=== PATIENT | female | born 1995 | race American Indian/Alaskan Native ===

== ENCOUNTER 2017-04-26 21:50 | Emergency (ER) | payer MEDICAID ==
[2017-04-26 23:08] VITALS: BP 108/72
== END 2017-04-27 06:01 | disposition left against medical advice (07) ==
LOC: ED 21:50
DX: R11.2 Nausea with vomiting, unspecified (principal); Z53.21 Procedure and treatment not carried out due to patient leaving prior to being seen by health care provider

== ENCOUNTER 2017-09-19 23:15 | Outpatient (CLI) | payer MEDICAID ==
[2017-09-19 23:25] VITALS: BP 120/72
[2017-09-20] MEDS ORDERED: VISTARIL PO ONE (00:15)
== END 2017-09-20 00:47 | disposition home or self-care (01) ==
LOC: TRG 23:15
PROVIDERS: ATTEND Obstetrics & Gynecology
DX: O62.9 Abnormality of forces of labor, unspecified (principal); O99.333 Smoking (tobacco) complicating pregnancy, third trimester; Z3A.35 35 weeks gestation of pregnancy; F17.203 Nicotine dependence unspecified, with withdrawal
CPT/HCPCS: 59025; Q0177

== ENCOUNTER 2017-09-29 23:49 | Inpatient (IN) | payer MEDICAID ==
[2017-09-30] MEDS ORDERED: LACTATED RINGERS 500 ML IV SCH (01:00)
[2017-09-30 02:11] LABS: Bilirubin,Urine NEG (Negative); Blood,Urine NEG (Negative); Color,Urine Yellow (Yellow); Mucus,Urine FEW /HPF; Protein,Urine <15 mg/dL mg/dL (Negative); Urobilinogen,Urine < 2.0 mg/dL (<2.0); WBC,Urine < 1.0 /HPF (0.0-6.0)
[2017-09-30] MEDS ORDERED: VISTARIL PO STA (02:16)
[2017-09-30] MEDS ORDERED: GUAIFENESIN DM SYRUP PO PRN (04:44)
[2017-09-30] MEDS ORDERED: AMBIEN PO PRN (04:44)
[2017-09-30] MEDS ORDERED: BENADRYL PO PRN ×2 (04:44→16:17)
[2017-09-30] MEDS ORDERED: ZOFRAN IV PRN (04:44)
[2017-09-30] MEDS ORDERED: TUCKS PAD TP PRN ×2 (04:44→16:17)
[2017-09-30] MEDS ORDERED: DEEP SEA NS PRN (04:44)
[2017-09-30] MEDS ORDERED: TYLENOL PO PRN ×2 (04:44→16:17)
[2017-09-30] MEDS ORDERED: ALUM-MAG HYDROX-SIMETH 200-200-20MG/5ML PO PRN (04:44)
[2017-09-30] MEDS ORDERED: SUBLIMAZE IV ONE ×2 (04:44→07:52)
[2017-09-30] MEDS ORDERED: MYLICON PO PRN (04:44)
[2017-09-30] MEDS ORDERED: SUBLIMAZE ONE ×2 (04:59→07:48)
--- NOTE | 2017-09-30 05:25 | History and Physical Report ---
History of Present Illness Date of examination: 09/30/17 Date of admission: 09/30/17 03:39 Chief complaint: contractions History of present illness: Patient presented complaining of contractions, initial exam reported as 2cm, she was observed x 1hour with no cervical change and catefory 1 FHT's, Order was given for Vistaril and discharge home. At discharge patient complained of vaginal bleeding, she was rechecked and found to be 4cm and bleeding/clots and possible abruption pattern, RN given orders to admit Past History : 3 Term Births: 2 Living Children: 2 Para: 2 # 1 Delivery date: 09/12/2012 Weeks Gestation: 37 Delivery type: Vaginal Anesthesia type: epidural Delivery location: [facility] Infant Sex: male weight: 6.19 Comments: pre-eclampsia/eclampsia/ MGSO4 # 2 Delivery date: 03/2015 Weeks Gestation: 41 Delivery type: Anesthesia type: none Delivery location: [facility] Infant Sex: Male weight: 6-2 Comments: del precipitously; pt had transfered care and was del by as a walk-in Past Medical History: Reviewed history from 04/27/2012 and no changes required: Negative Past Medical History Past Surgical History: Reviewed history from 04/27/2012 and no changes required: Negative Past Surgical History Past Medical History Abnormal PAP: negative SHARATH Exposure: negative Infertility: negative Uterine Anomaly: negative Uterine Surgery (not C/S): negative Other Gynecologic Problems: negative Social Hx: Patient is single [facility] no e/t/d Infection History Hx of STD: none HIV Risk Eval: low risk Hepatitis B Risk Eval: low risk Personal hx. of genital herpes: no Partner hx. of genital herpes: no Rash, Viral, or Febrile illness since last LMP? no Varicella/Chicken Pox Status: Immunized TB Risk: no Genetic History Congenital Heart Defect: Mom: no Dad: no Bri Disease: Mom: no Dad: no Thalassemia Mom: no Dad: no Neural Tube Defect Mom: no Dad: no Down's Syndrome Mom: no Dad: no Manuel-Sachs Mom: no Dad: no Sickle Cell Disease/Trait Mom: no Dad: no Hemophilia Mom: no Dad: no Muscular Dystrophy Mom: no Dad: no Cystic Fibrosis Mom: no Dad: no [place] Chorea Mom: no Dad: no Mental Retardation Mom: no Dad: no Fragile X Mom: no Dad: no Other Genetic/Chromosomal Disorder Mom: no Dad: no Child w/other defect Mom: no Dad: no Enviromental Exposures Xray Exposure: no Medication, drug, or alcohol use since LMP: no Chemical/Other Exposure: no Exposure to Cat Liter: no Hx of Parvovirus (Fifth Disease): no Occupational Exposure to Children: none Active Medications (reviewed today): Current Allergies (reviewed today): No known allergies Past History - Obstetrical History Expected Date of Delivery: 10/22/17 Actual Gestation: 36 Week(s) 6 Day(s) : 3 Medications and Allergies Allergies Allergy/AdvReac Type Severity Reaction Status Date / Time No Known Allergies Allergy Verified 03/24/15 22:56 Home Medications Medication Instructions Recorded Confirmed Last Taken Type Vit No.129/Iron/Folic 1 each PO DAILY 04/17/15 09/30/17 1 Day Ago History [ Tablet] ~09/29/17 Ferrous Sulfate [Feosol 325 MG tab] 325 mg PO BID #60 tablet 04/18/15 09/30/17 1 Day Ago Rx ~09/29/17 1 Vit-Fe Fumar-FA [ 1 tab PO QDAY #30 tablet 04/18/15 09/30/17 Unknown Rx Vitamin] Active Meds: Active Medications Acetaminophen (Tylenol) 650 mg PO Q4H PRN PRN Reason: Pain MILD(1-3)/Fever >100.5/KNOTT Al Hydrox/Mg Hydrox/Simethicone (Alum-Mag Hydrox-Simeth [phone]/5ml) 30 ml PO Q6H PRN PRN Reason: Indigestion Betamethasone Acet/Betameth SodPhos (Celestone Soluspan) 12 mg IM Q24HR CHLOÉ Stop: 10/01/17 10:01 Diphenhydramine HCl (Benadryl) 25 mg PO Q6H PRN PRN Reason: Itching Docusate Sodium (Colace) 100 mg PO Q12H PRN PRN Reason: Constipation Fentanyl (Sublimaze) 100 mcg IV ONCE ONE Stop: 09/30/17 04:45 Guaifenesin (Guaifenesin Dm Syrup) 10 ml PO Q6H PRN PRN Reason: Cough Lactated Ringer's (Lactated Ringers) 500 mls @ 999 mls/hr IV DIRECT CHLOÉ Last Infusion: 09/30/17 03:44 Dose: Infused Lactated Ringer's (Lactated Ringers) 1,000 mls @ 125 mls/hr IV DIRECT CHLOÉ Magnesium Hydroxide (Milk Of Magnesia) 30 ml PO QHS PRN PRN Reason: Laxative Effect Multivitamins/Iron/Calcium ( Vitamin) 1 each PO QDAY CHLOÉ Ondansetron HCl (Zofran) 4 mg IV Q6H PRN PRN Reason: Nausea And Vomiting Simethicone (Mylicon) 80 mg PO Q6H PRN PRN Reason: Gas pain Sodium Chloride (Deep Sea) 2 spray NS Q4H PRN PRN Reason: Congestion Witch Patricia/Glycerin (Tucks Pad) 1 each TP PRN PRN PRN Reason: Hemorrhoids Zolpidem Tartrate (Ambien) 10 mg PO ONCE PRN PRN Reason: Sleep Review of Systems All systems: negative Genitourinary: vaginal bleeding, contractions - Vital Signs Vital signs: Vital Signs Temp Pulse Resp BP 98.7 F 90 16 126/83 09/30/17 00:04 09/30/17 00:04 09/30/17 00:04 09/30/17 00:04 Temp Pulse Resp BP Pulse Ox 98.7 F 100 H 16 132/85 09/30/17 00:04 09/30/17 03:38 09/30/17 05:16 09/30/17 03:38 - Physical Exam Breasts: Positive: deferred Cardiovascular: Regular rate Lungs: Positive: Normal air movement Abdomen: Positive: normal appearance, soft Genitourinary (Female): Positive: normal external genitalia, normal perenium Vulva: both: normal Extremities: Positive: normal. Negative: tenderness, edema - Obstetrical FHR: category 1 Cervical Dilatation: 2.5 Cervical Effacement Percentage: 70 station: -4 per RN with bloody show, no active bleeding Uterine Contraction Pattern: Irregular Results Result Diagrams: 09/30/17 00:55 All other labs normal. Assessment and Plan Admit possibly early labor US to evaluate for abruption IVF hydration Celestone - Patient Problems (1) 36 weeks gestation of Current Visit: Yes Status: Acute (2) Vaginal bleeding during Current Visit: Yes Status: Acute (3) Uterine contractions Current Visit: Yes Status: Acute
[2017-09-30 05:29] LABS: Hematocrit TNR % (30.3-42.9); Hemoglobin TNR gm/dl (10.1-14.3); Lymphocytes % (Auto) TNR % (13.4-35.0); Mean Corpuscular HGB Conc TNR % (30-34); Mean Corpuscular Hemoglobin TNR pg (28-32); Mean Corpuscular Volume TNR fl (79-97); Mean Platelet Volume TNR fl (6-12); Platelet Count TNR K/mm3 (140-440); Red Blood Count TNR M/mm3 (3.65-5.03); Red Cell Distribution Width TNR % (13.2-15.2)
[2017-09-30] MEDS: LACTATED RINGERS 1,000 ML IV SCH ×2 (05:29→15:18)
[2017-09-30 05:30] LABS: Basophils # (Auto) TNR K/mm3 (0.0-0.1); Basophils % (Auto) TNR % (0.0-1.8); Eosinophils # (Auto) TNR K/mm3 (0.0-0.4); Eosinophils % (Auto) TNR % (0.0-4.3); Lymphocytes # (Auto) TNR K/mm3 (1.2-5.4); Monocytes # (Auto) TNR K/mm3 (0.0-0.8); Monocytes % (Auto) TNR % (0.0-7.3)
[2017-09-30] MEDS ORDERED: CELESTONE SOLUSPAN IM SCH (05:30)
--- NOTE | 2017-09-30 06:25 | Ultrasound Report ---
FINAL REPORT PROCEDURE: US OB LIMITED TECHNIQUE: Real-time limited sonographic examination was performed for evaluation of size, position, heartbeat, fluid volume for each fetus with image documentation (1 or more fetuses). CPT 09550 HISTORY: vaginal bleeding COMPARISON: No prior studies are available for comparison. FINDINGS: There is a single fetus in a vertex presentation. The placenta is along the left lateral aspect of the uterus. No previa identified. The cervical length is 3.1 centimeters. heart rate 136 beats per minute. Four-quadrant amniotic fluid volume measures 7.5 centimeters. IMPRESSION: Single fetus in a vertex presentation. There is a normal moderate amount of fluid.
[2017-09-30] MEDS ORDERED: COLACE PO PRN (08:00)
[2017-09-30] MEDS ORDERED: PRENATAL VITAMIN PO SCH (10:00)
[2017-09-30] MEDS ORDERED: PITOCin/NS 30 UNIT/500ML 30,000 MILLIUNITS/500 ML BAG IV ONE (11:24)
[2017-09-30 12:16] LABS: Hematocrit 32.9 % (30.3-42.9); Hemoglobin 10.8 gm/dl (10.1-14.3); Mean Corpuscular HGB Conc 33 % (30-34); Mean Corpuscular Hemoglobin 28 pg (28-32); Mean Corpuscular Volume 86 fl (79-97); Platelet Count 100 K/mm3 (140-440); Red Blood Count 3.83 M/mm3 (3.65-5.03); Red Cell Distribution Width 14.9 % (13.2-15.2)
[2017-09-30] MEDS ORDERED: NARCAN 2 MG/2 ML IV PRN (12:53)
[2017-09-30] MEDS ORDERED: ePHEDrine SULFATE IV PRN (12:53)
--- NOTE | 2017-09-30 12:53 | Anesthesia Consultation ---
Anesthesia Consult and Med Hx Date of service: 09/30/17 - Airway Anesthetic Teeth Evaluation: Good ROM Head & Neck: Adequate Mental/Hyoid Distance: Adequate Mallampati Class: Class II Intubation Access Assessment: Probably Good - Pulmonary Exam CTA: Yes - Cardiac Exam Cardiac Exam: RRR - Pre-Operative Health Status ASA Pre-Surgery Classification: ASA2 Proposed Anesthetic Plan: Epidural - Pulmonary Hx Asthma: No COPD: No Hx Pneumonia: No - Cardiovascular System Hx Hypertension: No - Central Nervous System Hx Seizures: No Hx Psychiatric Problems: No - Endocrine Hx Renal Disease: No Hx End Stage Renal Disease: No Hx Hypothyroidism: No Hx Hyperthyroidism: No - Hematic Hx Anemia: No Hx Sickle Cell Disease: No - Other Systems Hx Alcohol Use: No
[2017-09-30] MEDS ORDERED: fentaNYL-BUPIV 2 MCG/ML-0.125% 200 MCG/100 ML BAG EPIDURAL SCH (14:00)
--- NOTE | 2017-09-30 14:04 | Progress Note ---
Assessment and Plan - Patient Problems (1) labor Current Visit: Yes Status: Acute Qualifiers: labor trimester: third trimester Fetus number: single or unspecified fetus Plan to address problem: Artificial rupture of membranes revealing clear fluid cervix with little change will increase Pitocin and watch tracing. Intrauterine pressure catheter and scalp electrode placed (2) 36 weeks gestation of Current Visit: Yes Status: Acute (3) Vaginal bleeding during Current Visit: Yes Status: Acute Subjective - Subjective Date of service: 09/30/17 Interval history: Patient is comfortable after epidural Patient reports: movement normal, contractions Objective - Vital Signs Vital Signs: Vital Signs - 12hr 09/30/17 09/30/17 09/30/17 03:38 05:16 05:47 Temperature Pulse Rate 100 H 90 Respiratory 16 18 Rate Blood Pressure 132/85 Blood Pressure 132/85 [Left] O2 Sat by Pulse 99 Oximetry 09/30/17 09/30/17 09/30/17 05:53 05:58 07:29 Temperature Pulse Rate 92 H 81 100 H Respiratory Rate Blood Pressure 114/71 Blood Pressure [Left] O2 Sat by Pulse 100 100 Oximetry 09/30/17 09/30/17 09/30/17 08:04 08:10 08:29 Temperature 98.5 F Pulse Rate 98 H 96 H 89 Respiratory Rate Blood Pressure 103/64 114/82 Blood Pressure 103/64 [Left] O2 Sat by Pulse 97 Oximetry 09/30/17 09/30/17 09/30/17 09:28 10:29 12:46 Temperature Pulse Rate 96 H 101 H 107 H Respiratory Rate Blood Pressure 120/76 115/67 Blood Pressure [Left] O2 Sat by Pulse 100 Oximetry 09/30/17 09/30/17 09/30/17 12:51 12:52 12:55 Temperature Pulse Rate 107 H 108 H 96 H Respiratory Rate Blood Pressure 118/75 112/71 Blood Pressure [Left] O2 Sat by Pulse 100 Oximetry 09/30/17 09/30/17 09/30/17 12:57 13:08 13:12 Temperature Pulse Rate 111 H 108 H 103 H Respiratory Rate Blood Pressure 113/73 114/70 113/74 Blood Pressure [Left] O2 Sat by Pulse Oximetry 09/30/17 09/30/17 09/30/17 13:18 13:22 13:27 Temperature Pulse Rate 108 H 109 H 121 H Respiratory Rate Blood Pressure 125/80 124/78 139/79 Blood Pressure [Left] O2 Sat by Pulse Oximetry 09/30/17 09/30/17 09/30/17 13:33 13:38 13:43 Temperature Pulse Rate 109 H 111 H 109 H Respiratory Rate Blood Pressure 129/80 129/85 130/80 Blood Pressure [Left] O2 Sat by Pulse Oximetry 09/30/17 09/30/17 09/30/17 13:48 13:53 13:54 Temperature Pulse Rate 114 H 107 H 110 H Respiratory Rate Blood Pressure 131/85 122/82 Blood Pressure [Left] O2 Sat by Pulse 99 100 Oximetry 09/30/17 09/30/17 09/30/17 13:57 13:58 14:02 Temperature Pulse Rate 89 102 H 111 H Respiratory Rate Blood Pressure 118/78 126/86 Blood Pressure [Left] O2 Sat by Pulse 100 Oximetry 09/30/17 14:03 Temperature Pulse Rate 112 H Respiratory Rate Blood Pressure Blood Pressure [Left] O2 Sat by Pulse 100 Oximetry - Exam FHR: category 1 Cervical Dilatation: 4.5 Cervical Effacement Percentage: 70 station: -1 Uterine Contraction Pattern: Irregular - Labs Labs: Abnormal Labs 09/30/17 12:04 WBC 13.0 H Plt Count 100 L Laboratory Results - last 24 hr 09/30/17 09/30/17 09/30/17 00:55 00:55 12:04 WBC TNR 13.0 H RBC TNR 3.83 Hgb TNR 10.8 Hct TNR 32.9 MCV TNR 86 MCH TNR 28 MCHC TNR 33 RDW TNR 14.9 Plt Count TNR 100 L Lymph % (Auto) TNR Saunders % (Auto) TNR Eos % (Auto) TNR Baso % (Auto) TNR Lymph # TNR Saunders # TNR Eos # TNR Baso # TNR Add Manual Diff TNR Seg Neutrophils % TNR Office Bookkeeper Seg Neutrophils # TNR Urine Color Urine Turbidity Urine pH Ur Specific [place] Urine Protein Urine Glucose (UA) Urine Ketones Urine Blood Urine Nitrite Urine Bilirubin Urine Urobilinogen Ur Leukocyte Esterase Urine WBC (Auto) Urine RBC (Auto) U Epithel Cells (Auto) Urine Mucus Blood Type AB POSITIVE Antibody Screen Negative 09/30/17 Unknown WBC RBC Hgb Hct MCV MCH MCHC RDW Plt Count Lymph % (Auto) Saunders % (Auto) Eos % (Auto) Baso % (Auto) Lymph # Saunders # Eos # Baso # Add Manual Diff Seg Neutrophils % Seg Neutrophils # Urine Color Yellow Urine Turbidity Clear Urine pH 6.0 Ur Specific [place] 1.010 Urine Protein <15 mg/dl Urine Glucose (UA) Neg Urine Ketones Neg Urine Blood Neg Urine Nitrite Neg Urine Bilirubin Neg Urine Urobilinogen < 2.0 Ur Leukocyte Esterase Neg Urine WBC (Auto) < 1.0 Urine RBC (Auto) 3.0 U Epithel Cells (Auto) 1.0 Urine Mucus Few Blood Type Antibody Screen
[2017-09-30 14:18] LABS: Anisocytosis 1+; Band Neutrophils # (Manual) 0.1 K/mm3; Basophils % (Manual) 0 % (0.0-1.8); Eosinophils % (Manual) 0 % (0.0-4.3); Platelet Estimate Consistent w Auto; Total Cells Counted 100
[2017-09-30] MEDS ORDERED: PITOCin/NS 20 UNIT/1000ML DRIP 20,000 MILLIUNITS/1,000 ML BAG IV ONE (15:30)
--- NOTE | 2017-09-30 16:16 | Procedure Note ---
OB Delivery Note - Delivery Date of Delivery: 09/30/17 Surgeon: GRETCHEN MORALES Estimated blood loss: other (400cc) - Vaginal Delivery position: OA Intrapartum events: labor-<37 weeks, prolonged latent phase Delivery augmentation: rupture of membranes, pitocin Delivery monitor: external FHT, external uterine, internal FHT, internal uterine Route of delivery: Delivery placenta: spontaneous Delivery cord: nuchal cord Episiotomy: none Delivery laceration: 2nd degree (midline) Delivery repair: vicryl Anesthesia: epidural Delivery comments: Patient, labor was complicated by deep variables after reaching 9 cm. The patient successfully pushed and delivered a male infant with a nuchal cord present. NICU team was present at delivery - A at 1 minute: 8 at 5 minutes: 9 Gender: Male
[2017-09-30] MEDS ORDERED: MILK OF MAGNESIA PO PRN ×2 (16:17→22:00)
[2017-09-30] MEDS ORDERED: LANSINOH TP PRN (16:17)
[2017-09-30] MEDS ORDERED: PHENERGAN PO PRN (16:17)
[2017-09-30] MEDS ORDERED: NORCO 5/325 PO PRN (16:17)
[2017-09-30] MEDS ORDERED: DULCOLAX PR PRN (16:17)
[2017-09-30] MEDS ORDERED: SODIUM CHLORIDE FLUSH SYRINGE 10 ML IV SCH (17:00)
[2017-09-30] MEDS: MOTRIN PO SCH (20:29)
[2017-10-01] MEDS: MOTRIN PO SCH ×4 (03:46→18:00)
[2017-10-01 07:15] LABS: Hematocrit 27.1 % (30.3-42.9); Hemoglobin 9.1 gm/dl (10.1-14.3)
--- NOTE | 2017-10-01 09:15 | Discharge Summary ---
Providers - Providers Date of Admission: 09/30/17 03:39 Date of discharge: 10/01/17 Attending physician: JETHRO MEEHAN 09/30/17 16:19 Consult to Livestock Counter [CONS] Routine Reason For Exam: assistance with , SNS Primary care physician: TOBI NAVARRO Hospitalization Reason for admission: active labor Delivery: Episiotomy: none Laceration: 1st degree Other procedures: none complications: none Discharge diagnosis: IUP at term delivered baby: male Hospital course: Patient was admitted underwent a normal spontaneous vaginal delivery. Her course was benign. She was afebrile throughout her stay. Her day 1 hematocrit was 27%. Patient is breast and bottlefeeding and desired a Mirena for control. Patient desires discharge this afternoon. Condition at discharge: Good Disposition: DC-01 TO HOME OR SELFCARE - Discharge Diagnoses (1) labor Status: Acute Qualifiers: labor trimester: third trimester Fetus number: single or unspecified fetus (2) 36 weeks gestation of Status: Resolved (3) Vaginal bleeding during Status: Resolved Plan - Discharge Medications Prescriptions: Ferrous Sulfate [Feosol 325 MG tab] 325 mg PO BID #60 tablet Ibuprofen [Motrin 800 MG tab] 800 mg PO Q6H PRN #30 tablet PRN Reason: Pain - Provider Discharge Summary Activity: routine, no sex for 6 weeks Diet: routine Instructions: routine Additional instructions: [] Smoking cessation referral if applicable(refer to patient education folder for contact #) [] Refer to [facility] Call your doctor immediately for: * Fever > 100.5 * Heavy vaginal bleeding ( >1 pad per hour) * Severe persistent headache * Shortness of breath * Reddened, hot, painful area to leg or breast * Drainage or odor from incision. *Patient follow up in office in 4 weeks. Patient called office to schedule circumcision for her son. - Follow up plan Follow up: TOBI NAVARRO MD [Primary Care Provider] - 7 Days
[2017-10-01] MEDS ORDERED: PRENATAL VITAMIN PO SCH (10:00)
[2017-10-02] MEDS: MOTRIN PO SCH ×2 (05:38)
[2017-10-02 08:34] VITALS: BP 116/86
== END 2017-10-02 10:00 | disposition home or self-care (01) | DRG 774 ==
LOC: TRG 23:49 → LD 09-30 03:39 → TRG 09-30 03:39 → OB 09-30 18:43
PROVIDERS: ADMIT Obstetrics & Gynecology; ATTEND Obstetrics & Gynecology
PROC: 10E0XZZ Delivery of Products of Conception, External Approach (ICD-10-PCS; principal; 2017-09-30)
PROC: 0KQM0ZZ Repair Perineum Muscle, Open Approach (ICD-10-PCS; 2017-09-30)
PROC: 10907ZC Drainage of Amniotic Fluid, Therapeutic from Products of Conception, Via Natural or Artificial Opening (ICD-10-PCS; 2017-09-30)
PROC: 3E0R3BZ Introduction of Anesthetic Agent into Spinal Canal, Percutaneous Approach (ICD-10-PCS; 2017-09-30)
PROC: 00HU33Z Insertion of Infusion Device into Spinal Canal, Percutaneous Approach (ICD-10-PCS; 2017-09-30)
DX: O60.14X0 Preterm labor third trimester with preterm delivery third trimester, not applicable or unspecified (principal); O67.8 Other intrapartum hemorrhage; Z3A.36 36 weeks gestation of pregnancy; Z37.0 Single live birth; O69.81X0 Labor and delivery complicated by cord around neck, without compression, not applicable or unspecified; O70.1 Second degree perineal laceration during delivery
CPT/HCPCS: 36415; 59025; 76815; 81001; 85007; 85014; 85018; 85025; 86592; 86850; 86900; 86901; 96360; J0702; J2590; J3010; J7120; Q0177

== ENCOUNTER 2021-07-02 09:07 | Emergency (ER) | payer MEDICAID ==
[2021-07-02 11:38] LABS: Bacteria,Urine 1+ /HPF (Negative); HCG Qualitative,Urine Negative (Negative); Mucus,Urine 2+ /HPF
[2021-07-02 11:53] LABS: Bilirubin,Urine NEG (Negative); Blood,Urine NEG (Negative); Color,Urine Yellow (Yellow); Protein,Urine <15 mg/dL mg/dL (Negative); Urobilinogen,Urine < 2.0 mg/dL (<2.0)
--- NOTE | 2021-07-02 13:43 | Emergency Department Report ---
HPI - General Chief Complaint: Abdominal Pain Time Seen by Provider: 07/02/21 13:27 - HPI HPI: Over the last 2 months the patient has noticed some issues with bruising on her skin. It started with minor trauma on her right lateral thigh when she hit herself and she bruised but after that she has had a couple of other bruises in the anterior thigh and also in her right upper extremity and she does not account for it with any even minor trauma. She denies any nausea vomiting fever chills shortness of breath or chest pain. She is concerned because of blood clots run in her family and she would like to get checked for a coagulation problem. Nothing makes this better or worse and she has taken no medications. ED Past Medical Hx - Past Medical History Hx Hypertension: No Hx Congestive Heart Failure: No Hx Diabetes: No Hx Deep Vein Thrombosis: No Hx Renal Disease: No Hx Sickle Cell Disease: No Hx Seizures: No Hx Asthma: No Hx COPD: No Hx HIV: No - Social History Smoking Status: Former Smoker - Medications Home Medications: Home Medications Medication Instructions Recorded Confirmed Last Taken Type Vit No.129/Iron/Folic 1 each PO DAILY 04/17/15 09/30/17 1 Day Ago History [ Tablet] ~09/29/17 Ferrous Sulfate [Feosol 325 MG tab] 325 mg PO BID #60 tablet 04/18/15 09/30/17 1 Day Ago Rx ~09/29/17 1 Vit-Fe Fumar-FA [ 1 tab PO QDAY #30 tablet 04/18/15 09/30/17 Unknown Rx Vitamin] Ferrous Sulfate [Feosol 325 MG tab] 325 mg PO BID #60 tablet 09/30/17 Unknown Rx Ibuprofen [Motrin 800 MG tab] 800 mg PO Q6H PRN #30 tablet 09/30/17 Unknown Rx Ibuprofen [Motrin 800 MG tab] 800 mg PO TID PRN #30 tablet 10/02/17 Unknown Rx Lidocain2.5%/Prilocai2.5% [Emla] 5 gm TP PRN #1 tube 10/02/17 Unknown Rx ED Review of Systems ROS: Stated complaint: ABD PAIN Other details as noted in HPI Comment: All other systems reviewed and negative Physical Exam - Physical Exam Vital Signs: Vital Signs 07/02/21 10:20 Temperature 98.3 F Pulse Rate 88 Respiratory 18 Rate Blood Pressure 155/90 [Right] O2 Sat by Pulse 100 Oximetry Physical Exam: Physical Exam Constitutional: General: No acute distress. Appearance: No diaphoresis. HENT: Head: Normocephalic. Eyes: Pupils: Pupils are equal, round, and reactive to light. Neck: Musculoskeletal: Normal range of motion. Cardiovascular: Rate and Rhythm: Normal rate and regular rhythm. Pulses: Intact distal pulses. Heart sounds: Normal heart sounds. No murmur. Pulmonary: Effort: No respiratory distress. Breath sounds: No wheezing or rales. Chest: Chest wall: No tenderness. Abdominal: General: There is no distension. Palpations: There is no mass. Tenderness: There is no abdominal tenderness. There is no guarding or rebound. Musculoskeletal: Normal range of motion. No calf tenderness. Skin: General: Skin is warm and dry. The patient has 2 very faint right anterior thigh 2 x 6 faint ecchymotic areas as well as another ecchymotic area on her right anterior forearm measuring about 2 cm. Neurological: Mental Status: Alert and oriented to person, place, and time. Psychiatric: Mood and Affect: Mood and affect normal. Cognition and Memory: Memory normal. Judgment: Judgment normal. ED Course Vital Signs 07/02/21 10:20 Temperature 98.3 F Pulse Rate 88 Respiratory 18 Rate Blood Pressure 155/90 [Right] O2 Sat by Pulse 100 Oximetry - Reevaluation(s) Reevaluation #1: 07/02/21 15:10 The patient's laboratories were all within normal limits. She is not the urinalysis is completely normal and her coagulations and platelets are within normal limits. She will follow up with her PCP as soon as possible return if any other issues arise. ED Medical Decision Making - Lab Data Result diagrams: 07/02/21 14:16 Critical care attestation.: If time is entered above; I have spent that time in minutes in the direct care of this critically ill patient, excluding procedure time. ED Disposition Clinical Impression: Superficial bruising of thigh Disposition: HOME / SELF CARE / HOMELESS Is pt being admited?: No Does the pt Need Aspirin: No Condition: Stable Instructions: Abdominal Pain (ED), Contusion, [id number] Referrals: GRETCHEN MORALES MD [Primary Care Provider] - 3-5 Days Print Language: ICELANDIC
[2021-07-02 14:57] LABS: Basophils % (Auto) 0.5 % (0.0-1.8); Eosinophils # (Auto) 0.1 K/mm3 (0.0-0.4); Eosinophils % (Auto) 1.2 % (0.0-4.3); Hematocrit 42.5 % (30.3-42.9); Hemoglobin 14.2 gm/dl (10.1-14.3); Lymphocytes # (Auto) 1.8 K/mm3 (1.2-5.4); Lymphocytes % (Auto) 37.7 % (13.4-35.0); Mean Corpuscular HGB Conc 33 % (30-34); Mean Corpuscular Volume 89 fl (79-97); Monocytes # (Auto) 0.3 K/mm3 (0.0-0.8); Monocytes % (Auto) 6.8 % (0.0-7.3); Platelet Count 177 K/mm3 (140-440); Red Blood Count 4.79 M/mm3 (3.65-5.03); Red Cell Distribution Width 14.3 % (13.2-15.2)
[2021-07-02 15:08] LABS: INR 0.92 (0.87-1.13)
[2021-07-02 15:09] LABS: Partial Thromboplastin Time 26.9 Sec. (24.2-36.6)
[2021-07-02 15:12] LABS: Alanine Aminotransferase 13 units/L (7-56); Albumin 4.3 g/dL (3.9-5); Blood Urea Nitrogen 6 mg/dL (7-17); Calcium 9.6 mg/dL (8.4-10.2); Hemolysis Index 6
[2021-07-02 15:14] LABS: BUN/Creatinine Ratio 9
[2021-07-02 15:23] VITALS: BP 150/85
== END 2021-07-02 15:19 | disposition home or self-care (01) ==
LOC: ED 09:07
DX: S70.11XA Contusion of right thigh, initial encounter (principal); Z87.891 Personal history of nicotine dependence; X58.XXXA Exposure to other specified factors, initial encounter; Y93.89 Activity, other specified; Y92.89 Other specified places as the place of occurrence of the external cause; Y99.8 Other external cause status
CPT/HCPCS: 36415; 80053; 81001; 81025; 85025; 85610; 85730; 99282; 99283